=== PATIENT | female | born 1965 ===

== ENCOUNTER 2022-01-07 14:48 | Outpatient (CLI) | payer BC, SELFPAY ==
[2022-01-07 22:01] LABS: Chloride* 104 mmol/L (96-114)
[2022-01-07 22:02] LABS: Potassium* 4.7 mmol/L (3.6-5.1); Sodium* 140 mmol/L (135-149)
[2022-01-07 22:04] LABS: Cholesterol* 263 mg/dL (90-199); Creatinine* 0.7 mg/dL (0.5-1.5); Estimated Glomerular Filt Rate 102 ml/min
[2022-01-07 22:05] LABS: Blood Urea Nitrogen* 19 mg/dL (7-30); Calcium* 9.1 mg/dL (8.4-10.6); Carbon Dioxide* 27 mmol/L (20-32); Glucose* 87 mg/dL (60-115); HDL Cholesterol* 81 mg/dL (>=50); LDL Cholesterol Calculated 173 mg/dL (<100); Triglycerides* 46 mg/dL (40-149)
== END 2022-01-07 14:49 | disposition home or self-care (01) ==
PROVIDERS: PCP Family Medicine; Visit Provider Family Medicine
DX: Z01.419 Encounter for gynecological examination (general) (routine) without abnormal findings (principal); E78.5 Hyperlipidemia, unspecified
CPT/HCPCS: 80048; 80061

== ENCOUNTER 2022-09-10 10:28 | Outpatient (CLI) | payer BC, SELFPAY | END 2022-09-10 10:29 | disposition home or self-care (01) | PROVIDERS: PCP Family Medicine; Visit Provider Family Medicine | DX: M54.2 Cervicalgia (principal); E78.5 Hyperlipidemia, unspecified | CPT/HCPCS: 80061; 80076 ==

== ENCOUNTER 2023-02-17 13:17 | Outpatient (CLI) | payer BC, SELFPAY | END 2023-02-17 13:18 | disposition home or self-care (01) | LOC: NFLDREF 02-19 08:28 | PROVIDERS: PCP Family Medicine; Referring Provider Family Medicine; Visit Provider Family Medicine | DX: Z01.419 Encounter for gynecological examination (general) (routine) without abnormal findings (principal); R87.610 Atypical squamous cells of undetermined significance on cytologic smear of cervix (ASC-US); M54.2 Cervicalgia; E78.5 Hyperlipidemia, unspecified | CPT/HCPCS: 80061; 84460 ==

== ENCOUNTER 2024-07-15 12:59 | Outpatient (CLI) | payer BC, SELFPAY | END 2024-07-15 13:00 | disposition home or self-care (01) | LOC: LKVREF 13:00 | PROVIDERS: PCP Family Medicine; Visit Provider Family Medicine | DX: E78.5 Hyperlipidemia, unspecified (principal) | CPT/HCPCS: 80053; 80061 ==

== ENCOUNTER 2024-10-12 08:04 | Outpatient (CLI) | payer BC, SELFPAY | END 2024-10-12 08:05 | disposition home or self-care (01) | LOC: LKVREF 08:05 | PROVIDERS: PCP Family Medicine; Visit Provider Family Medicine | DX: E78.5 Hyperlipidemia, unspecified (principal); R00.1 Bradycardia, unspecified; M54.2 Cervicalgia | CPT/HCPCS: 80053; 80061 ==